=== PATIENT | female | born 1965 | race Caucasian/White ===

== ENCOUNTER 2019-01-22 10:42 | Inpatient (IN) | payer OTHER ==
[~2019-01-22] VITALS: Ht 157.5 cm; Wt 83.3 kg
[2019-01-22 11:34] LABS: ALANINE AMINOTRANSFERASE 23 U/L (12-78); ALBUMIN 4.1 g/dL (3.4-5.0); ANION GAP 7 mmol/L (5-15); CALCIUM 9.2 mg/dL (8.5-10.1); CHLORIDE 106 mmol/L (98-107); CREATININE 0.84 mg/dL (0.55-1.02)
[2019-01-22 11:39] LABS: ALKALINE PHOSPHATASE 83 U/L (45-117); BILIRUBIN,TOTAL 0.4 mg/dL (0.2-1.0); TOTAL PROTEIN 9.1 g/dL (6.4-8.2); TROPONIN I < 0.015 ng/mL (0.000-0.045)
--- NOTE | 2019-01-22 11:59 | NUR ---
[employer]PORATE [employer]IST[employer]; PT TO ROOM FROM LOBBY VIA W/C
--- NOTE | 2019-01-22 12:09 | NUR ---
C/O PAIN LT LAT RIBS - COUGHED, HEARD A POP, FELT PAIN. GENERALIZED ABD PAIN, LT SIDED CP. PRODUCTIVE COUGH X 1 WK W/ GREEN PHLEGM. ADVIL 400MG PO & OMPERAZOLE AT 0930. NO FLU VACC, NO PEUMONIA VACC.
[2019-01-22] MEDS ORDERED: OMEPRAZOLE (12:13)
--- NOTE | 2019-01-22 12:43 | NUR ---
O2 SAT 88-89%RA. O2 2LNC APPLIED.
[2019-01-22 12:55] LABS: MEAN CORPUSCULAR HEMOGLOBIN 30.2 pg (27.0-34.8); MEAN CORPUSCULAR HGB CONC 32.5 g/dL (32.4-35.8); MEAN CORPUSCULAR VOLUME 92.6 fL (80-100); MEAN PLATELET VOLUME 8.1 fL (7.4-10.4); PLATELET COUNT 259 x10^3/uL (130-400); RED BLOOD COUNT 5.13 x10^6/uL (3.82-5.3); RED CELL DISTRIBUTION WIDTH 13.2 % (9.6-15.2)
[2019-01-22] MEDS ORDERED: HYDROcodone/APAP 5/325 TABLET ONE (13:07)
[2019-01-22] MEDS ORDERED: DIAZEPAM 5 MG TABLET ONE (13:08)
--- NOTE | 2019-01-22 13:11 | NUR ---
NORCO & VALIUM GIVEN PER EMAR. O2 SAT: 92% ON 2LNC. PT TO CT PER ANDRES
[2019-01-22 13:18] LABS: BASOPHILS # (AUTO) 0.01 x10^3/uL (0-0.1); BASOPHILS % (AUTO) 0 % (0-1); EOSINOPHILS # (AUTO) 0.05 x10^3/uL (0-0.4); EOSINOPHILS % (AUTO) 0 % (1-7); LYMPHOCYTES % (AUTO) 13 % (22-44); MD SCAN; MONOCYTES # (AUTO) 0.55 x10^3/uL (0.2-0.8); MONOCYTES % (AUTO) 4 % (2-9); NEUTROPHILS # (AUTO) 11.34 x10^3/uL (1.8-6.8); NEUTROPHILS % (AUTO) 82 % (42-75)
[2019-01-22] MEDS ORDERED: DIAZEPAM 5 MG TABLET PO ONE (13:30)
[2019-01-22] MEDS ORDERED: HYDROcodone/APAP 5/325 TABLET PO ONE (13:30)
[2019-01-22] MEDS ORDERED: CEFTRIAXONE PMX 1GM/50ML 50 ML IV ONE (14:00)
[2019-01-22] MEDS ORDERED: ALBUTEROL/IPRATROPIUM 2.5MG/0.5MG, 3 ML NPPB ONE (14:00)
[2019-01-22] MEDS ORDERED: CEFTRIAXONE PMX 1GM/50ML 50 ML ONE (14:18)
--- NOTE | 2019-01-22 14:25 | NUR ---
PT RESTING QUIETLY ON BED. BLD CX DRAWN EARLIER, CX ARM BAND PRESENT.
[2019-01-22] MEDS ORDERED: ALBUTEROL/IPRATROPIUM 2.5MG/0.5MG, 3 ML ONE (14:26)
--- NOTE | 2019-01-22 14:37 | NUR ---
NEB TX IN PROGRESS
[2019-01-22] MEDS ORDERED: ENALAPRILAT 1.25 MG/ML, 2ML IVPush PRN (15:00)
[2019-01-22] MEDS ORDERED: ACETAMINOPHEN 325 MG TABLET PO PRN (15:00)
[2019-01-22] MEDS ORDERED: ONDANSETRON 2MG/ML, 2ML IVPush PRN (15:00)
[2019-01-22] MEDS ORDERED: TEMAZEPAM 15 MG CAPSULE PO PRN (15:00)
--- NOTE | 2019-01-22 15:05 | NUR ---
PT REPORT TO CHARITY COFFEY FOR ROOM 337
[2019-01-22] MEDS ORDERED: ENOXAPARIN 40 MG/0.4 ML ONE (15:20)
[2019-01-22] MEDS: ENOXAPARIN 40 MG/0.4 ML SQ SCH (15:23)
--- NOTE | 2019-01-22 15:26 | NUR ---
PT'S MOM BS.
[2019-01-22] MEDS: CEFTRIAXONE PMX 2GM/50ML 50 ML IV SCH (15:40)
[2019-01-22] MEDS: SODIUM CHLORIDE 0.9% 1,000 ML IV SCH ×2 (15:41→23:29)
[2019-01-22] MEDS: KETOROLAC 30 MG/1 ML IV PRN ×2 (15:44→22:49)
[2019-01-22 15:47] VITALS: BP 100/68
[2019-01-22] MEDS: AZITHROMYCIN 500 MG in SODIUM CHLORIDE 0.9% 250 ML IV SCH (17:26)
[2019-01-22 18:54] VITALS: BP 102/67
[2019-01-22] MEDS: ALBUTEROL/IPRATROPIUM 2.5MG/0.5MG, 3 ML NPPB SCH (20:15)
[2019-01-22] MEDS: GUAIFENESIN ER 600 MG TABLET PO SCH (20:32)
[2019-01-22] MEDS ORDERED: GUAIFENESIN 200 MG TABLET PO SCH (21:00)
[2019-01-23 01:41] VITALS: BP 101/69
[2019-01-23 04:31] LABS: ANION GAP 4 mmol/L (5-15); CALCIUM 7.8 mg/dL (8.5-10.1); CHLORIDE 113 mmol/L (98-107); CREATININE 0.68 mg/dL (0.55-1.02)
[2019-01-23 04:45] LABS: BASOPHILS # (AUTO) 0.05 x10^3/uL (0-0.1); BASOPHILS % (AUTO) 1 % (0-1); EOSINOPHILS # (AUTO) 0.08 x10^3/uL (0-0.4); EOSINOPHILS % (AUTO) 1 % (1-7); LYMPHOCYTES # (AUTO) 2.14 x10^3/uL (1-3.4); LYMPHOCYTES % (AUTO) 26 % (22-44); MD NO; MEAN CORPUSCULAR HEMOGLOBIN 30.2 pg (27.0-34.8); MEAN CORPUSCULAR HGB CONC 33.3 g/dL (32.4-35.8); MEAN CORPUSCULAR VOLUME 90.7 fL (80-100); MEAN PLATELET VOLUME 7.7 fL (7.4-10.4); MONOCYTES # (AUTO) 0.77 x10^3/uL (0.2-0.8); MONOCYTES % (AUTO) 9 % (2-9); NEUTROPHILS # (AUTO) 5.24 x10^3/uL (1.8-6.8); NEUTROPHILS % (AUTO) 63 % (42-75); PLATELET COUNT 332 x10^3/uL (130-400); RED BLOOD COUNT 4.11 x10^6/uL (3.82-5.3); RED CELL DISTRIBUTION WIDTH 13.6 % (9.6-15.2)
[2019-01-23] MEDS: SODIUM CHLORIDE 0.9% 1,000 ML IV SCH ×2 (05:58→13:46)
[2019-01-23 07:14] VITALS: BP 101/68
[2019-01-23] MEDS: KETOROLAC 30 MG/1 ML IV PRN ×2 (08:05→20:30)
[2019-01-23] MEDS: GUAIFENESIN ER 600 MG TABLET PO SCH ×2 (08:05→20:30)
[2019-01-23] MEDS: ALBUTEROL/IPRATROPIUM 2.5MG/0.5MG, 3 ML NPPB SCH ×2 (09:00→18:35)
[2019-01-23 13:36] VITALS: BP 99/64
[2019-01-23] MEDS: ENOXAPARIN 40 MG/0.4 ML SQ SCH (15:08)
[2019-01-23] MEDS: CEFTRIAXONE PMX 2GM/50ML 50 ML IV SCH (15:08)
[2019-01-23] MEDS: AZITHROMYCIN 500 MG in SODIUM CHLORIDE 0.9% 250 ML IV SCH (17:21)
[2019-01-23 19:05] VITALS: BP 103/67
[2019-01-24 00:46] VITALS: BP 97/65
[2019-01-24] MEDS: KETOROLAC 30 MG/1 ML IV PRN ×3 (03:54→21:14)
[2019-01-24 05:36] LABS: BASOPHILS # (AUTO) 0.03 x10^3/uL (0-0.1); BASOPHILS % (AUTO) 1 % (0-1); EOSINOPHILS % (AUTO) 3 % (1-7); LYMPHOCYTES # (AUTO) 2.02 x10^3/uL (1-3.4); LYMPHOCYTES % (AUTO) 32 % (22-44); MD NO; MEAN CORPUSCULAR HEMOGLOBIN 30.5 pg (27.0-34.8); MEAN CORPUSCULAR HGB CONC 33.2 g/dL (32.4-35.8); MEAN CORPUSCULAR VOLUME 91.7 fL (80-100); MEAN PLATELET VOLUME 7.6 fL (7.4-10.4); MONOCYTES # (AUTO) 0.56 x10^3/uL (0.2-0.8); MONOCYTES % (AUTO) 9 % (2-9); NEUTROPHILS # (AUTO) 3.57 x10^3/uL (1.8-6.8); NEUTROPHILS % (AUTO) 56 % (42-75); PLATELET COUNT 330 x10^3/uL (130-400); RED CELL DISTRIBUTION WIDTH 13.4 % (9.6-15.2)
[2019-01-24 05:42] LABS: ANION GAP 4 mmol/L (5-15); CALCIUM 8.1 mg/dL (8.5-10.1); CHLORIDE 112 mmol/L (98-107)
[2019-01-24 05:43] LABS: CREATININE 0.64 mg/dL (0.55-1.02)
[2019-01-24 06:55] VITALS: BP 114/72
[2019-01-24] MEDS: ALBUTEROL/IPRATROPIUM 2.5MG/0.5MG, 3 ML NPPB SCH ×2 (07:09→20:02)
[2019-01-24] MEDS: GUAIFENESIN ER 600 MG TABLET PO SCH ×2 (07:35→21:15)
[2019-01-24] MEDS ORDERED: GUAI600T31 PO (10:41)
[2019-01-24] MEDS ORDERED: LIDO700A20 TD (10:41)
[2019-01-24] MEDS ORDERED: ACET325T14 PO (10:41)
[2019-01-24] MEDS ORDERED: AMOX1TAB64 PO (10:41)
[2019-01-24] MEDS ORDERED: ALBU8.5H8 INH (10:43)
[2019-01-24] MEDS: PIPERACILLIN/TAZO/PMX 3.375GM 50 ML IV SCH ×2 (11:33→17:08)
[2019-01-24 13:07] VITALS: BP 102/70
[2019-01-24] MEDS: ENOXAPARIN 40 MG/0.4 ML SQ SCH (13:49)
[2019-01-24] MEDS ORDERED: CALCIUM CARBONATE 500 MG TAB.CHEW PO PRN (17:30)
[2019-01-24] MEDS: AZITHROMYCIN 500 MG in SODIUM CHLORIDE 0.9% 250 ML IV SCH (17:57)
[2019-01-24 19:14] VITALS: BP 114/77
[2019-01-24] MEDS: OMEPRAZOLE 20 MG CAPSULE.DR PO SCH (20:55)
[2019-01-25] MEDS: PIPERACILLIN/TAZO/PMX 3.375GM 50 ML IV SCH ×4 (00:25→18:30)
[2019-01-25 01:37] VITALS: BP 127/70
[2019-01-25] MEDS: OMEPRAZOLE 20 MG CAPSULE.DR PO SCH (06:33)
[2019-01-25 07:01] VITALS: BP 114/77
[2019-01-25] MEDS: ALBUTEROL/IPRATROPIUM 2.5MG/0.5MG, 3 ML NPPB SCH (09:00)
[2019-01-25] MEDS: GUAIFENESIN ER 600 MG TABLET PO SCH ×2 (09:27→20:39)
[2019-01-25] MEDS: ENOXAPARIN 40 MG/0.4 ML SQ SCH (12:44)
[2019-01-25 13:06] VITALS: BP 95/60
[2019-01-25] MEDS: AZITHROMYCIN 500 MG in SODIUM CHLORIDE 0.9% 250 ML IV SCH (17:40)
[2019-01-25 18:47] VITALS: BP 108/70
[2019-01-25] MEDS: KETOROLAC 30 MG/1 ML IV PRN (20:39)
[2019-01-26] MEDS: PIPERACILLIN/TAZO/PMX 3.375GM 50 ML IV SCH ×4 (00:20→17:45)
[2019-01-26 01:44] VITALS: BP 112/79
[2019-01-26 04:34] LABS: BASOPHILS # (AUTO) 0.07 x10^3/uL (0-0.1); BASOPHILS % (AUTO) 1 % (0-1); EOSINOPHILS # (AUTO) 0.35 x10^3/uL (0-0.4); EOSINOPHILS % (AUTO) 5 % (1-7); LYMPHOCYTES # (AUTO) 3.13 x10^3/uL (1-3.4); LYMPHOCYTES % (AUTO) 40 % (22-44); MD NO; MEAN CORPUSCULAR HEMOGLOBIN 30.8 pg (27.0-34.8); MEAN CORPUSCULAR HGB CONC 33.6 g/dL (32.4-35.8); MEAN CORPUSCULAR VOLUME 91.9 fL (80-100); MEAN PLATELET VOLUME 7.6 fL (7.4-10.4); MONOCYTES # (AUTO) 0.61 x10^3/uL (0.2-0.8); MONOCYTES % (AUTO) 8 % (2-9); NEUTROPHILS # (AUTO) 3.63 x10^3/uL (1.8-6.8); NEUTROPHILS % (AUTO) 47 % (42-75); PLATELET COUNT 416 x10^3/uL (130-400); RED BLOOD COUNT 4.43 x10^6/uL (3.82-5.3); RED CELL DISTRIBUTION WIDTH 13.4 % (9.6-15.2)
[2019-01-26 04:48] LABS: ANION GAP 6 mmol/L (5-15); CALCIUM 8.5 mg/dL (8.5-10.1); CHLORIDE 111 mmol/L (98-107); CREATININE 0.89 mg/dL (0.55-1.02)
[2019-01-26] MEDS: OMEPRAZOLE 20 MG CAPSULE.DR PO SCH (06:00)
[2019-01-26 07:20] VITALS: BP 100/56
[2019-01-26] MEDS: GUAIFENESIN ER 600 MG TABLET PO SCH ×2 (08:20→20:31)
[2019-01-26 12:19] VITALS: BP 112/76
[2019-01-26] MEDS: ENOXAPARIN 40 MG/0.4 ML SQ SCH (14:26)
[2019-01-26] MEDS ORDERED: OMEPRAZOLE 20 MG CAPSULE.DR PO SCH (16:00)
[2019-01-26] MEDS: AZITHROMYCIN 500 MG in SODIUM CHLORIDE 0.9% 250 ML IV SCH (16:46)
[2019-01-26 19:49] VITALS: BP 103/69
[2019-01-27] MEDS: PIPERACILLIN/TAZO/PMX 3.375GM 50 ML IV SCH ×3 (00:13→12:38)
[2019-01-27 02:14] VITALS: BP 109/70
[2019-01-27 04:40] LABS: BASOPHILS # (AUTO) 0.07 x10^3/uL (0-0.1); BASOPHILS % (AUTO) 1 % (0-1); EOSINOPHILS # (AUTO) 0.39 x10^3/uL (0-0.4); EOSINOPHILS % (AUTO) 6 % (1-7); LYMPHOCYTES # (AUTO) 2.62 x10^3/uL (1-3.4); LYMPHOCYTES % (AUTO) 36 % (22-44); MD NO; MEAN CORPUSCULAR HGB CONC 32.6 g/dL (32.4-35.8); MEAN CORPUSCULAR VOLUME 92.3 fL (80-100); MEAN PLATELET VOLUME 7.5 fL (7.4-10.4); MONOCYTES # (AUTO) 0.54 x10^3/uL (0.2-0.8); MONOCYTES % (AUTO) 7 % (2-9); NEUTROPHILS # (AUTO) 3.58 x10^3/uL (1.8-6.8); NEUTROPHILS % (AUTO) 50 % (42-75); PLATELET COUNT 406 x10^3/uL (130-400); RED BLOOD COUNT 4.53 x10^6/uL (3.82-5.3); RED CELL DISTRIBUTION WIDTH 12.9 % (9.6-15.2)
[2019-01-27 04:49] LABS: ANION GAP 6 mmol/L (5-15); CALCIUM 8.3 mg/dL (8.5-10.1); CHLORIDE 109 mmol/L (98-107)
[2019-01-27 04:50] LABS: CREATININE 0.87 mg/dL (0.55-1.02)
[2019-01-27] MEDS: OMEPRAZOLE 20 MG CAPSULE.DR PO SCH (05:47)
[2019-01-27 07:05] VITALS: BP 103/67
[2019-01-27] MEDS: GUAIFENESIN ER 600 MG TABLET PO SCH (09:55)
[2019-01-27 14:05] VITALS: BP 98/66
[2019-01-27] MEDS: ENOXAPARIN 40 MG/0.4 ML SQ SCH (15:00)
== END 2019-01-27 16:20 | disposition home or self-care (01) | DRG 871 ==
LOC: ED 13:47 → EDIP 13:48 → ED 13:57 → 3NW 15:36 → DCLOUNGE 01-27 16:10
PROVIDERS: ADMIT Internal Medicine; ATTEND Internal Medicine
DX: A41.9 Sepsis, unspecified organism (principal); J18.9 Pneumonia, unspecified organism; S22.32XA Fracture of one rib, left side, initial encounter for closed fracture; E66.9 Obesity, unspecified; K21.9 Gastro-esophageal reflux disease without esophagitis; K44.9 Diaphragmatic hernia without obstruction or gangrene; R09.02 Hypoxemia; Z80.3 Family history of malignant neoplasm of breast; W18.39XA Other fall on same level, initial encounter; Y93.89 Activity, other specified; Y92.89 Other specified places as the place of occurrence of the external cause; Y99.8 Other external cause status; Z82.49 Family history of ischemic heart disease and other diseases of the circulatory system; Z88.2 Allergy status to sulfonamides
CPT/HCPCS: 36415; 99285; J7620; 71045; 71250; 80048; 80053; 83605; 83690; 83880; 84484; 85025; 87040; 87070; 87205; 93005; 94640; G0378; J0456; J0696; J1650; J1885; J2405; J2543; J7030; J7050

== ENCOUNTER 2019-02-01 23:57 | Inpatient (IN) | payer OTHER ==
[~2019-02-01] VITALS: Ht 157.5 cm; Wt 80.0 kg
[~2019-02-01 23:57] MED LIST: ACET325T14 PO; ALBU8.5H8 INH; AMOX1TAB64 PO; GUAI600T31 PO; LIDO700A20 TD; OMEPRAZOLE
--- NOTE | 2019-02-02 00:18 | NUR ---
Urine sample collected and sent to lab. XR at bedside.
[2019-02-02] MEDS ORDERED: MORPHINE SULFATE 4 MG/ML, 1ML ONE ×2 (00:23→01:51)
[2019-02-02] MEDS ORDERED: ONDANSETRON 2MG/ML, 2ML ONE (00:23)
[2019-02-02] MEDS ORDERED: ONDANSETRON 2MG/ML, 2ML IVPush ONE (00:30)
[2019-02-02 00:34] LABS: MICROSCOPIC NOT IND
[2019-02-02 00:40] LABS: CULTURE INDICATED? NO
[2019-02-02] MEDS: MORPHINE SULFATE 4 MG/ML, 1ML IVPush PRN ×2 (00:42→01:56)
[2019-02-02 00:44] LABS: BASOPHILS # (AUTO) 0.06 x10^3/uL (0-0.1); BASOPHILS % (AUTO) 1 % (0-1); EOSINOPHILS # (AUTO) 0.12 x10^3/uL (0-0.4); EOSINOPHILS % (AUTO) 1 % (1-7); LYMPHOCYTES % (AUTO) 21 % (22-44); MD NO; MEAN CORPUSCULAR HEMOGLOBIN 30.8 pg (27.0-34.8); MEAN CORPUSCULAR HGB CONC 33.6 g/dL (32.4-35.8); MEAN CORPUSCULAR VOLUME 91.7 fL (80-100); MEAN PLATELET VOLUME 7.7 fL (7.4-10.4); MONOCYTES # (AUTO) 0.79 x10^3/uL (0.2-0.8); MONOCYTES % (AUTO) 8 % (2-9); NEUTROPHILS # (AUTO) 7.44 x10^3/uL (1.8-6.8); NEUTROPHILS % (AUTO) 70 % (42-75); PLATELET COUNT 423 x10^3/uL (130-400); RED BLOOD COUNT 4.76 x10^6/uL (3.82-5.3); RED CELL DISTRIBUTION WIDTH 13.2 % (9.6-15.2)
[2019-02-02 00:55] LABS: ALANINE AMINOTRANSFERASE 22 U/L (12-78); ALBUMIN 3.9 g/dL (3.4-5.0); ANION GAP 8 mmol/L (5-15); CALCIUM 8.9 mg/dL (8.5-10.1); CHLORIDE 110 mmol/L (98-107); CREATININE 0.98 mg/dL (0.55-1.02)
[2019-02-02 00:57] LABS: ALKALINE PHOSPHATASE 77 U/L (45-117); BILIRUBIN,TOTAL 0.2 mg/dL (0.2-1.0); TOTAL PROTEIN 8.2 g/dL (6.4-8.2)
--- NOTE | 2019-02-02 01:15 | NUR ---
Pt in imaging at this time.
--- NOTE | 2019-02-02 01:55 | NUR ---
Dr. Pruett at bedside to discuss ED findings and POC. Pt medicated per JAN.
--- NOTE | 2019-02-02 02:20 | NUR ---
Pt to imaging, with tech, via gujanett.
--- NOTE | 2019-02-02 02:25 | NUR ---
Pt back to room from imaging.
[2019-02-02 02:29] LABS: TROPONIN I < 0.015 ng/mL (0.000-0.045)
--- NOTE | 2019-02-02 03:03 | NUR ---
PT BEDSIDE REPORT FROM AUBREY NASH. THIS RN TO ASSUME CARE OF PT. AWAITING ABD CT RESULTS.
--- NOTE | 2019-02-02 03:03 | NUR ---
SBAR report given to Wilberto NASH.
[2019-02-02] MEDS ORDERED: ONDANSETRON 2MG/ML, 2ML IVPush PRN (04:00)
[2019-02-02 04:11] VITALS: BP 109/75
[2019-02-02] MEDS ORDERED: morphine SULFATE 10 MG/ML, 1ML IVPush PRN (04:30)
[2019-02-02] MEDS ORDERED: hydrALAzine 20 MG/ML, 1ML IVPush PRN (04:30)
[2019-02-02] MEDS: ACETAMINOPHEN 325 MG TABLET PO PRN ×3 (04:37→18:24)
[2019-02-02] MEDS: SODIUM CHLORIDE 0.9% 1,000 ML IV SCH (04:37)
[2019-02-02] MEDS: ENOXAPARIN 40 MG/0.4 ML SQ SCH (04:38)
[2019-02-02] MEDS: LIDODERM 5% PATCH TD SCH (04:38)
[2019-02-02] MEDS ORDERED: ALBUTEROL SULFATE 2.5 MG/3 ML NPPB PRN (05:00)
[2019-02-02] MEDS: ONDANSETRON 2MG/ML, 2ML IVPush PRN ×3 (05:51→19:34)
[2019-02-02 08:18] VITALS: BP 113/78
[2019-02-02] MEDS: GUAIFENESIN ER 600 MG TABLET PO SCH ×2 (08:32→19:35)
[2019-02-02] MEDS ORDERED: AMOXICILLIN/CLAV 875-125MG TABLET PO SCH (09:00)
[2019-02-02 13:15] VITALS: BP 116/79
[2019-02-02] MEDS ORDERED: METOCLOPRAMIDE 5 MG/ML, 2ML IVPush PRN (13:30)
[2019-02-02 19:49] VITALS: BP 103/69
[2019-02-03] MEDS: SODIUM CHLORIDE 0.9% 1,000 ML IV SCH (00:08)
[2019-02-03 01:27] VITALS: BP 97/64
[2019-02-03] MEDS: LIDODERM 5% PATCH TD SCH ×2 (04:12→23:39)
[2019-02-03] MEDS: ONDANSETRON 2MG/ML, 2ML IVPush PRN (04:12)
[2019-02-03] MEDS: ENOXAPARIN 40 MG/0.4 ML SQ SCH (04:12)
[2019-02-03 06:34] LABS: BASOPHILS # (AUTO) 0.04 x10^3/uL (0-0.1); BASOPHILS % (AUTO) 1 % (0-1); EOSINOPHILS # (AUTO) 0.07 x10^3/uL (0-0.4); EOSINOPHILS % (AUTO) 1 % (1-7); LYMPHOCYTES # (AUTO) 2.03 x10^3/uL (1-3.4); LYMPHOCYTES % (AUTO) 39 % (22-44); MD NO; MEAN CORPUSCULAR HEMOGLOBIN 30.9 pg (27.0-34.8); MEAN CORPUSCULAR HGB CONC 33.9 g/dL (32.4-35.8); MEAN CORPUSCULAR VOLUME 91.1 fL (80-100); MEAN PLATELET VOLUME 7.8 fL (7.4-10.4); MONOCYTES # (AUTO) 0.46 x10^3/uL (0.2-0.8); MONOCYTES % (AUTO) 9 % (2-9); NEUTROPHILS # (AUTO) 2.66 x10^3/uL (1.8-6.8); NEUTROPHILS % (AUTO) 51 % (42-75); PLATELET COUNT 330 x10^3/uL (130-400); RED BLOOD COUNT 4.27 x10^6/uL (3.82-5.3); RED CELL DISTRIBUTION WIDTH 13.6 % (9.6-15.2)
[2019-02-03 06:43] LABS: CHLORIDE 109 mmol/L (98-107)
[2019-02-03 06:49] LABS: ALANINE AMINOTRANSFERASE 18 U/L (12-78); ALBUMIN 3.2 g/dL (3.4-5.0); ALKALINE PHOSPHATASE 66 U/L (45-117); ANION GAP 5 mmol/L (5-15); BILIRUBIN,TOTAL 0.6 mg/dL (0.2-1.0); CALCIUM 8.4 mg/dL (8.5-10.1); CREATININE 0.63 mg/dL (0.55-1.02); TOTAL PROTEIN 7.1 g/dL (6.4-8.2)
[2019-02-03 08:02] VITALS: BP 100/67
[2019-02-03] MEDS ORDERED: CALCIUM CARBONATE 500 MG TAB.CHEW ONE (10:27)
[2019-02-03] MEDS ORDERED: CALCIUM CARBONATE 500 MG TAB.CHEW PO PRN (10:30)
[2019-02-03] MEDS: GUAIFENESIN ER 600 MG TABLET PO SCH ×2 (10:31→20:08)
[2019-02-03] MEDS ORDERED: SINCALIDE (KINEVAC) 5 MCG ONE (11:52)
[2019-02-03 13:20] VITALS: BP 100/54
[2019-02-03] MEDS ORDERED: LIDODERM 5% PATCH TD SCH (18:00)
[2019-02-03] MEDS ORDERED: ALBUTEROL/IPRATROPIUM 2.5MG/0.5MG, 3 ML NPPB SCH (19:00)
[2019-02-03] MEDS ORDERED: POLYETHYLENE GLYCOL 17 GM PACKET NG PRN (19:00)
[2019-02-03 19:28] VITALS: BP 97/63
[2019-02-03] MEDS: LIDODERM MC SCH (22:30)
[2019-02-04 01:24] VITALS: BP 96/63
[2019-02-04] MEDS: ENOXAPARIN 40 MG/0.4 ML SQ SCH (04:06)
[2019-02-04] MEDS: LIDODERM MC SCH (04:07)
[2019-02-04] MEDS ORDERED: LIDODERM 5% PATCH TD SCH ×2 (04:30→18:00)
[2019-02-04 07:05] VITALS: BP 101/69
[2019-02-04] MEDS: GUAIFENESIN ER 600 MG TABLET PO SCH (07:44)
[2019-02-04] MEDS ORDERED: ACET325T14 PO (10:42)
[2019-02-04] MEDS ORDERED: ONDA4TAB7 PO (10:42)
[2019-02-04] MEDS ORDERED: GUAI600T31 PO (10:42)
[2019-02-04] MEDS ORDERED: ALBU8.5H8 INH (10:42)
[2019-02-04] MEDS ORDERED: LIDO700A20 TD (10:42)
[2019-02-05] MEDS ORDERED: LIDODERM 5% PATCH TD SCH (04:30)
== END 2019-02-04 12:36 | disposition home or self-care (01) | DRG 193 ==
LOC: ED 02-02 00:23 → INTOOBSV 02-02 03:31 → EDIP 02-02 03:31 → 4EST 02-02 03:52 → OBSVTOIN 02-03 10:59 → DCLOUNGE 02-04 12:27
PROVIDERS: ADMIT Family Medicine; ATTEND Family Medicine
DX: J18.9 Pneumonia, unspecified organism (principal); J96.01 Acute respiratory failure with hypoxia; J98.11 Atelectasis; J44.0 Chronic obstructive pulmonary disease with (acute) lower respiratory infection; E86.0 Dehydration; K21.9 Gastro-esophageal reflux disease without esophagitis; K76.0 Fatty (change of) liver, not elsewhere classified; Z79.01 Long term (current) use of anticoagulants; Z87.01 Personal history of pneumonia (recurrent); Z88.2 Allergy status to sulfonamides
CPT/HCPCS: 36415; 99285; J7620; 71045; 71275; 74177; 74181; 76700; 78227; 80053; 81003; 83690; 84484; 85025; 94640; G0378; J1650; J2405; A9537; C9898; J2805; J7030

== ENCOUNTER 2020-02-23 23:31 | Emergency (ER) | payer OTHER ==
[~2020-02-23] VITALS: Ht 154.9 cm; Wt 83.0 kg
[~2020-02-23 23:31] MED LIST changes: +ONDA4TAB7 PO
[2020-02-24] MEDS ORDERED: ONDANSETRON 2MG/ML, 2ML IVPush ONE
[2020-02-24] MEDS ORDERED: MORPHINE SULFATE 4 MG/ML, 1ML IVPush PRN
[2020-02-24] MEDS ORDERED: KETOROLAC 30 MG/1 ML ONE (00:07)
[2020-02-24] MEDS ORDERED: ONDANSETRON 2MG/ML, 2ML ONE (00:07)
--- NOTE | 2020-02-24 00:14 | NUR ---
PT FELL ASLEEP FOR A NAP AT APPROX. 2PM THIS AFTERNOON, AWOKE AT 3PM WITH SEVERE LLQ PAIN, N/V. HAS NOT SUBSIDED. IV STARTED, LABS DRAWN AND SENT. PT MEDICATED PER JAN. CALL LIGHT IN REACH.
[2020-02-24 00:24] LABS: BASOPHILS # (AUTO) 0.04 x10^3/uL (0-0.1); BASOPHILS % (AUTO) 0 % (0-1); EOSINOPHILS % (AUTO) 0 % (1-7); LYMPHOCYTES # (AUTO) 0.98 x10^3/uL (1-3.4); LYMPHOCYTES % (AUTO) 7 % (22-44); MD NO; MEAN CORPUSCULAR HEMOGLOBIN 31.1 pg (27.0-34.8); MEAN CORPUSCULAR HGB CONC 33.6 g/dL (32.4-35.8); MEAN CORPUSCULAR VOLUME 92.6 fL (80-100); MEAN PLATELET VOLUME 8.1 fL (7.4-10.4); MONOCYTES # (AUTO) 0.55 x10^3/uL (0.2-0.8); MONOCYTES % (AUTO) 4 % (2-9); NEUTROPHILS # (AUTO) 12.03 x10^3/uL (1.8-6.8); NEUTROPHILS % (AUTO) 89 % (42-75); PLATELET COUNT 306 x10^3/uL (130-400); RED BLOOD COUNT 4.77 x10^6/uL (3.82-5.3)
[2020-02-24 00:27] LABS: ALANINE AMINOTRANSFERASE 21 U/L (12-78); ALBUMIN 3.8 g/dL (3.4-5.0); ANION GAP 9 mmol/L (5-15); CALCIUM 9.2 mg/dL (8.5-10.1); CHLORIDE 107 mmol/L (98-107); CREATININE 1.18 mg/dL (0.55-1.02)
[2020-02-24 00:29] LABS: ALKALINE PHOSPHATASE 75 U/L (45-117); BILIRUBIN,TOTAL 0.3 mg/dL (0.2-1.0); TOTAL PROTEIN 8.4 g/dL (6.4-8.2)
[2020-02-24] MEDS ORDERED: KETOROLAC 30 MG/1 ML IVPush ONE (00:30)
[2020-02-24 01:15] LABS: CULTURE INDICATED? YES; MICROSCOPIC INDICATED
--- NOTE | 2020-02-24 01:18 | NUR ---
PT RESTING COMFORTABLY AT THIS TIME, NO FURTHER EMESIS OR COMPLAINTS OF PAIN. TAKEN TO CT AT THIS TIME.
--- NOTE | 2020-02-24 01:29 | NUR ---
PT RETURNED FROM CT AT THIS TIME. CALL LIGHT IN REACH.
[2020-02-24] MEDS ORDERED: OMNIPAQUE 350 MG/ML, 100ML BOTTLE ONE (01:33)
[2020-02-24] MEDS ORDERED: HYDROcodone/APAP 5/325 TABLET ONE (01:53)
[2020-02-24] MEDS ORDERED: HYDROcodone/APAP 5/325 TABLET PO ONE (02:00)
[2020-02-24] MEDS ORDERED: HYDROmorphone 1 MG/ML, 1ML INJ ONE (02:10)
[2020-02-24] MEDS ORDERED: HYDROmorphone 1 MG/ML, 1ML INJ IVPush ONE (02:30)
[2020-02-24 02:51] VITALS: BP 108/62
== END 2020-02-24 03:00 | disposition home or self-care (01) ==
LOC: ED 02-24 00:20
DX: N20.2 Calculus of kidney with calculus of ureter (principal); R10.32 Left lower quadrant pain; R31.9 Hematuria, unspecified; K21.9 Gastro-esophageal reflux disease without esophagitis
CPT/HCPCS: 36415; 74177; 80053; 81001; 83690; 85025; 87086; 96374; 96375; 99285; J1885; J2405; Q9967